=== PATIENT | female | born 1990 | race Caucasian/White ===

== ENCOUNTER 2017-09-20 09:33 | Emergency (ER) | payer BC, OTHER ==
[2017-09-20 10:44] VITALS: BP 107/67
--- NOTE | 2017-09-20 11:00 | UC ---
Respiratory Complaint HPI - HPI Summary HPI Summary: Cough and congestion for about two days. She says her temp got up to 99.8. She had some hip pain and myalgias. No fever or significant myalgias now. She has no lung disease. Non smoker. No asthma. - History of Current Complaint Chief Complaint: UCRespiratory Stated Complaint: COUGH,ST,FEVER,ACHES Time Seen by Provider: 09/20/17 10:31 Hx Obtained From: Patient Hx Last Menstrual Period: 08/30/17 Onset/Duration: Gradual Onset, Lasting Days Timing: Constant Severity Initially: Moderate Severity Currently: Moderate Pain Intensity: 4 Character: Cough: Nonproductive Aggravating Factors: Deep Breaths, Recumbent Position Alleviating Factors: Nothing Associated Signs And Symptoms: Positive: URI, Nasal Congestion - Allergies/Home Medications Allergies/Adverse Reactions: Allergies Allergy/AdvReac Type Severity Reaction Status Date / Time Amoxicillin Allergy Rash Verified 09/20/17 10:34 Cefaclor [From Ceclor] Allergy Rash Verified 09/20/17 10:34 "An antibiotic of some sort" Allergy Unknown Uncoded 09/20/17 10:34 Reaction Details Home Medications: Home Medications Polyethylene Glycol 3350* [Miralax*] 1 packet DAILY PRN 09/20/17 [History Confirmed 09/20/17] PMH/Surg Hx/FS Hx/Imm Hx Previously Healthy: Yes - Surgical History Surgical History: Yes Surgery Procedure, Year, and Place: Eye Muscle Surgery x 2, ~1993; "Soft Spot Surgery", ~1991. D&C - Family History Known Family History: Positive: None Family History: No cardio vascular issues in family lineage - Social History Occupation: Employed Full-time Alcohol Use: None Substance Use Type: None Smoking Status (MU): Never Smoked Tobacco Household Exposure Type: Cigarettes - Immunization History Most Recent Influenza Vaccination: Not the 2016/2017 Season Most Recent Tetanus Shot: UTD Review of Systems Respiratory: Cough All Other Systems Reviewed And Are Negative: Yes Physical Exam Triage Information Reviewed: Yes Appearance: Well-Appearing - Upright, pleasant, no distress, no frequent cough. , No Pain Distress, Well-Nourished Vital Signs: Initial Vital Signs Temp 98.9 F 09/20/17 10:35 Pulse 122 09/20/17 10:35 Resp 20 09/20/17 10:35 BP 107/67 09/20/17 10:35 Pulse Ox 98 09/20/17 10:35 Vital Signs Reviewed: Yes Eyes: Positive: Conjunctiva Clear ENT: Positive: Pharynx normal, Nasal congestion, TMs normal, Uvula midline. Negative: TM bulging, TM dull, TM red, Tonsillar swelling, Tonsillar exudate, Sinus tenderness Neck: Positive: Supple, Nontender, No Lymphadenopathy Respiratory: Positive: Lungs clear, Normal breath sounds, No respiratory distress, No accessory muscle use. Negative: Respiratory distress, Decreased breath sounds, Accessory muscle use, Crackles, Rhonchi, Stridor, Wheezing Cardiovascular: Positive: No Murmur, Pulses Normal, Brisk Capillary Refill Abdomen Description: Positive: No Organomegaly, Soft. Negative: Distended, Guarding Musculoskeletal: Positive: Strength Intact, ROM Intact, No Edema Neurological: Positive: Alert, Muscle Tone Normal. Negative: Fatigued Psychological: Positive: Age Appropriate Behavior Skin: Negative: rashes UC Diagnostic Evaluation - Laboratory O2 Sat by Pulse Oximetry: 98 Respiratory Course/Dx - Course Course Of Treatment: Not c/w influenza without fever or maliase or obviuos myalgias. She is low risk for complications if it is. Supportive care. - Differential Dx/Diagnosis Provider Diagnoses: viral illness. Discharge - Discharge Plan Condition: Good Disposition: HOME Patient Education Materials: Upper Respiratory Infection (ED) Referrals: Gisselle Mart MD [Primary Care Provider] - Additional Instructions: Santiago barragan
== END 2017-09-20 11:02 | disposition home or self-care (01) ==
LOC: UCCORT 09:33
DX: B34.9 Viral infection, unspecified (principal); Z88.1 Allergy status to other antibiotic agents; Z77.22 Contact with and (suspected) exposure to environmental tobacco smoke (acute) (chronic)
CPT/HCPCS: 99211; G0463

== ENCOUNTER 2019-11-22 10:45 | Emergency (ER) | payer OTHER ==
[2019-11-22 11:38] LABS: Influenza A Molecular Negative (Negative); Influenza B Molecular Negative (Negative)
[2019-11-22 11:40] VITALS: BP 119/79
--- NOTE | 2019-11-22 11:51 | UC ---
Respiratory Complaint HPI - HPI Summary HPI Summary: ONSET YESTERDAY OF DRY COUGH, SORE THROAT/PAIN WITH SWALLOWING, SINUS CONGESTION AND CHILLS. PATIENT DENIES ANY MEASURED FEVER. NO NAUSEA/VOMITING. PATIENT REPORTS BEING EXPOSED TO A COWORKER WHO WAS EXPOSED TO SOMEONE BEING TESTED FOR COVID-19. - History of Current Complaint Chief Complaint: UCGeneralIllness Stated Complaint: COUGH/CONGESTION/ST Time Seen by Provider: 11/22/19 10:54 Hx Obtained From: Patient Hx Last Menstrual Period: 11/15/19 Onset/Duration: Gradual Onset, Lasting Days - 1 DAY, Still Present Timing: Constant Severity Initially: Moderate Severity Currently: Moderate Pain Intensity: 4 Pain Scale Used: 0-10 Numeric Character: Cough: Nonproductive Aggravating Factors: Nothing Alleviating Factors: Nothing Associated Signs And Symptoms: Positive: Chills, URI, Sinus Discomfort. Negative: Dyspnea, Fever, Wheezing - Allergies/Home Medications Allergies/Adverse Reactions: Allergies Allergy/AdvReac Type Severity Reaction Status Date / Time amoxicillin Allergy Rash Verified 11/22/19 10:49 cefaclor [From Ceclor] Allergy Rash Verified 11/22/19 10:49 "An antibiotic of some sort" Allergy Unknown Uncoded 11/22/19 10:49 Reaction Details Home Medications: Home Medications NK [No Home Medications Reported] 11/22/19 [History Confirmed 11/22/19] PMH/Surg Hx/FS Hx/Imm Hx Previously Healthy: Yes - Surgical History Surgical History: Yes Surgery Procedure, Year, and Place: Eye Muscle Surgery x 2, ~1993; "Soft Spot Surgery", ~1991. D&C. - 07/2018 - Family History Known Family History: Positive: None Family History: No cardio vascular issues in family lineage - Social History Alcohol Use: None Substance Use Type: None Smoking Status (MU): Never Smoked Tobacco Household Exposure Type: Cigarettes - Immunization History Most Recent Influenza Vaccination: Not the 2016/2017 Season Most Recent Tetanus Shot: UTD Review of Systems All Other Systems Reviewed And Are Negative: Yes Constitutional: Positive: Negative ENT: Positive: Sore Throat, Nasal Discharge, Sinus Congestion Respiratory: Positive: Cough Cardiovascular: Positive: Negative Gastrointestinal: Positive: Negative Musculoskeletal: Positive: Negative Physical Exam - Summary Physical Exam Summary: TO DECREASE THE RISK OF TRANSMISSION OF POSSIBLE COVID-19 I CONDUCTED THIS INTERVIEW USING TELEMEDICINE WHICH LIMITS THE PHYSICAL EXAM. Triage Information Reviewed: Yes Appearance: Well-Appearing, No Pain Distress, Well-Nourished Vital Signs: Initial Vital Signs Temp 98.1 F 11/22/19 10:50 Pulse 76 11/22/19 10:50 Resp 16 11/22/19 10:50 BP 119/79 11/22/19 10:50 Pulse Ox 100 11/22/19 10:50 Laboratory Tests 11/22/19 11/22/19 11:24 11:26 Influenza A (Rapid) Negative Influenza B (Rapid) Negative Group A Strep Rapid Negative Vital Signs Reviewed: Yes Eyes: Positive: Conjunctiva Clear ENT: Positive: Hearing grossly normal Neck: Positive: Supple Respiratory: Positive: No respiratory distress, No accessory muscle use, Other: - LUNGS CLEAR PER NURSING ASSESSMENT Musculoskeletal: Positive: ROM Intact Neurological: Positive: Alert Psychological: Positive: Age Appropriate Behavior Respiratory Course/Dx - Course Course Of Treatment: FLU NEGATIVE. STREP NEGATIVE. GIVEN RESPIRATORY SYMPTOMS, TESTING FOR COVID19 DONE TODAY. PATIENT BEING DISCHARGED HOME TO SELF-ISOLATION AND WILL BE CONTACTED WITH RESULTS. CONTACT/DROPLET PRECAUTIONS TAKEN BY NURSING DURING ENCOUNTER. TO DECREASE THE RISK OF TRANSMISSION OF POSSIBLE COVID-19 MY PART OF THE INTERVIEW WAS DONE USING TELEMEDICINE. - Differential Dx/Diagnosis Provider Diagnosis: Upper respiratory infection Discharge ED - Sign-Out/Discharge Documenting (check all that apply): Patient Departure All imaging exams completed and their final reports reviewed: No Studies - Discharge Plan Condition: Stable Disposition: HOME Patient Education Materials: Upper Respiratory Infection (ED) Forms: COVID-19 Tested & Isolation Referrals: Gisselle Mart MD [Primary Care Provider] - If Needed Additional Instructions: FLU NEGATIVE. STREP NEGATIVE. YOUR SYMPTOMS ARE LIKELY VIRALLY MEDIATED AND SHOULD RESOLVE ON THEIR OWN WITH TIME. NO INDICATION FOR ANTIBIOTICS AT PRESENT. GET REST AND STAY WELL HYDRATED. GIVEN YOUR RESPIRATORY SYMPTOMS TESTING FOR COVID-19 COMPLETED TODAY. YOU SHOULD EXPECT RESULTS IN 3-7 DAYS. YOU ARE BEING DISCHARGED TO SELF-ISOLATION AT HOME. YOU WILL BE CONTACTED BY US OR THE HEALTH DEPARTMENT WITH YOUR RESULTS. CALL 911 IF YOU DEVELOP WORSENING RESPIRATORY DISTRESS, FEVER, PAIN OR ANY OTHER CONCERNING SYMPTOMS. - Billing Disposition and Condition Condition: STABLE Disposition: Home
== END 2019-11-22 12:03 | disposition home or self-care (01) ==
LOC: UCCORT 10:45
DX: J06.9 Acute upper respiratory infection, unspecified (principal); Z20.828 Contact with and (suspected) exposure to other viral communicable diseases; Z88.1 Allergy status to other antibiotic agents; Z88.0 Allergy status to penicillin
CPT/HCPCS: 87635; 87651; 99211; G0463